=== PATIENT | female | born 1930 | race Caucasian/White ===

== ENCOUNTER 2018-11-26 08:01 | Emergency (ER) | payer MEDICARE, MEDICAID ==
[2018-11-26] MEDS: DIPHTH/TET/ACEL PERTUSS (ADULT) 0.5 ML VIAL IM* (11:24)
[2018-11-26] MEDS: ALBUTEROL 0.083% (NEB) 2.5 MG/3 ML AMP HHN (15:12)
== END 2018-11-26 16:13 | disposition home or self-care (01) ==
LOC: E/R 08:01
DX: S01.81XA Laceration without foreign body of other part of head, initial encounter (principal); I10 Essential (primary) hypertension; E03.9 Hypothyroidism, unspecified; J44.9 Chronic obstructive pulmonary disease, unspecified; W06.XXXA Fall from bed, initial encounter; Y92.9 Unspecified place or not applicable; Z23 Encounter for immunization
CPT/HCPCS: 70450; 72125; 90471; 90715; 94664; 99284-25